=== PATIENT | male | born 1970 | race Caucasian/White ===

== ENCOUNTER 2017-03-09 14:37 | Emergency (ER) | payer MEDICAID ==
[2017-03-09] MEDS ORDERED: KETOROLAC TROMETHAMINE 30 MG/ML VIAL IM ONE (15:20)
[2017-03-09] MEDS ORDERED: KETOROLAC TROMETHAMINE 30 MG/ML VIAL ONE (15:25)
--- OUTSIDE RECORDS SUMMARY | 2017-03-09 15:26 | XMS REPORT | Continuity of Care Document ---
:1970 Author Organization [facility] ([facility]) Address [address] [place] [address] Phone [phone] Care Team Providers Name Role Phone Stefany Merchant Primary Care Provider [phone] Source Comments This disclosure is being made pursuant to the Care Everywhere program, applicable federal and state laws, and may not contain all informaitonavailable regarding this patient.[facility] ([facility]) Active Allergies and Adverse Reactions Allergen Noted Date Severity Reactions Comments Penicillins 03/23/2013 Unknown Current Medications Prescription Sig. Disp. Refills Start Date End Date Status fluoxetine 40 mg Take 40 mg by mouth Active capsule daily. Indications: Depression albuterol 90 Use 2 Puffs by 1 Inhaler 6 03/23/2013 Active mcg/Actuation inhalation every 6 inhaler hours as needed. Indications: BRONCHOSPASM PREVENTION omeprazole 40 mg Take 1 Cap by mouth 30 Cap 5 12/15/2013 Active extended release daily. Indications: capsule GASTROESOPHAGEAL REFLUX nabumetone 500 mg Take 1 Tab by mouth 2 60 Tab 0 03/26/2014 Active tablet times daily. Indications: OSTEOARTHRITIS traMADol 50 mg Take 1 Tab by mouth 3 90 Tab 3 03/26/2014 Active tablet times daily as needed. Indications: PAIN tiZANidine 2 mg Take 1 Tab by mouth 3 90 Tab 3 03/26/2014 Active tablet times daily as needed. Indications: MUSCLE SPASM Active Problems Problem Noted Date Sacroiliac dysfunction 03/01/2014 Myofascial pain 10/28/2013 GERD (gastroesophageal reflux disease) 03/23/2013 Suicide attempt by drug ingestion 03/06/2012 Overdose of antidepressant 03/06/2012 Depression 12/26/2010 Resolved Problems Problem Noted Date Resolved Date Chest pain, unspecified 07/22/2012 03/23/2013 Suicide attempt 12/26/2010 03/06/2012 Social History Tobacco Use Types Packs/Day Years Used Date Current Some Day Smoker Cigarettes 0.5 30 Smokeless Tobacco: Never Used Tobacco Cessation:Counseling Given: Yes Comments: Alcohol Use Drinks/Week oz/Week Comments No 2 Cans of beer Last Filed Vital Signs Vital Sign Reading Time Taken Blood Pressure 142/87 07/15/2016 2:56 PM CDT Pulse 83 07/15/2016 2:56 PM CDT Temperature 36.6 C (97.9 F) 07/15/2016 2:49 PM CDT 

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
[2017-03-09] MEDS ORDERED: LIDOCAINE 1 PATCH ADH..PATCH TP ONE (16:00)
[2017-03-09 16:40] VITALS: BP 150/75
== END 2017-03-09 16:40 | disposition home or self-care (01) ==
LOC: ER 14:37
DX: S39.012A Strain of muscle, fascia and tendon of lower back, initial encounter (principal); S70.02XA Contusion of left hip, initial encounter; S70.12XA Contusion of left thigh, initial encounter; X58.XXXA Exposure to other specified factors, initial encounter; Y93.89 Activity, other specified; Y92.9 Unspecified place or not applicable; Z72.0 Tobacco use; M19.90 Unspecified osteoarthritis, unspecified site; K21.9 Gastro-esophageal reflux disease without esophagitis; J44.9 Chronic obstructive pulmonary disease, unspecified; I10 Essential (primary) hypertension

== ENCOUNTER 2017-08-13 15:23 | Observation (INO) | payer MEDICAID ==
[2017-08-13] MEDS: NITROGLYCERIN 0.4 MG/TAB BTL SL ONE ×2 (15:40→15:51)
[2017-08-13] MEDS ORDERED: ASPIRIN 81 MG TAB.CHEW ONE (15:43)
[2017-08-13] MEDS ORDERED: ASPIRIN 81 MG TAB.CHEW PO ONE (15:45)
[2017-08-13] MEDS ORDERED: NITROGLYCERIN 0.4 MG/TAB BTL SL ONE ×2 (15:51→16:02)
[2017-08-13 16:11] LABS: Hematocrit 46.3 % (42.0-52.0); Hemoglobin 16.7 gm/dL (13.5-18.0); Mean Cell Volume 91.9 fl (78-100); Mean Corpuscular Hemoglobin 33.1 pg (27-31); Mean Corpuscular Hgb Conc 36.1 g/dl (32-36); Mean Platelet Volume 9.6 fl (6.0-9.5); Neutrophil # 4.1 K/mm3 (1.3-6.0); Neutrophil % 65.2 % (42-75.0); Platelet Count 243 K/mm3 (150-450); Red Blood Count 5.04 M/mm3 (4.7-6.0); Red Cell Distribution Width 11.7 % (11.5-14.0); White Blood Count 6.3 K/mm3 (4.0-10.5)
[2017-08-13 16:18] LABS: Prothrombin Time (Patient) 10.2 Seconds (9.0-11.0)
--- NOTE | 2017-08-13 16:21 | ERNOTE ---
Chest Pain/Cardiac HPI Date of Service: 08/13/17 Chief Complaint: Chest Pain Time Seen by Provider: 08/13/17 15:55 Source: patient Exam Limitations: no limitations Immunizations: IMMUNIZATION HX Immunizations Up to Date Yes History of Influenza Vaccine Yes Hx Pneumococcal Vaccination Yes Allergies/Adverse Reactions: Allergies codeine Allergy (Unknown, Verified 08/13/17 15:35) Other Restless legs/spasms diphenhydramine HCl [From Benadryl] Allergy (Unknown, Verified 08/13/17 15:35) Itching hydrocodone Allergy (Unknown, Verified 08/13/17 15:35) Itching oxycodone [Oxycodone] Allergy (Unknown, Verified 08/13/17 15:35) Itching Penicillins Allergy (Unknown, Verified 08/13/17 15:35) Other Home Medications: HOME MEDICATIONS FLUoxetine HCL [Prozac] 20 mg PO BID 12/26/13 [Last Taken Unknown] Omeprazole [Prilosec] 40 mg PO DAILY 12/26/13 [Last Taken Unknown] Aspirin [Aspirin Chewable] 81 mg PO DAILY #30 tab.chew 11/17/14 [Last Taken Unknown] Ibuprofen [Motrin] 600 mg PO QID PRN #90 11/17/14 [Last Taken Unknown] Metoprolol Succinate [Toprol Xl] 100 mg PO DAILY #30 tablet.sa 11/17/14 [Last Taken 04/18/15 07:00 100mg] Nitroglycerin [Nitrostat] 0.4 mg SL PRN PRN #1 btl 11/17/14 [Last Taken Unknown] Polyethylene Glycol 3350 [Miralax] 17 gm PO BID #1 btl 12/27/14 [Last Taken Unknown] amLODIPine BESYLATE [Norvasc] 5 mg PO DAILY 04/03/15 [Last Taken Unknown] Meloxicam 7.5 mg PO DAILY #10 tablet 03/09/17 [Last Taken Unknown] Narrative: Pt. comes in with c/o chest pain for 24 hours and L leg numbness, and L arm numbness, pt. does state that he does have some mild SOB with this as well. Pt. denies any NVD, fever, and was seen for this previously and was diagnosed with a "mini stroke" pt. also states that he has a herniated disc in his lumbar spine. Pt. denies any alleviating or aggravating factors, or prehsopital treatment. Timing: getting worse Severity/Quality: sharp Location: substernal Chest Pain Radiation: no radiation Activities at Onset: none Modifying Factors - Improves: Present: nothing Modifying Factors - Worsens: Present: nothing Aspirin Treatment Today: no aspirin today Associated Symptoms: Present: dizziness Prior Chest Pain/Cardiac Workup: Reports: prior chest pain Review of Systems - Review of Systems Constitutional: Present: no symptoms reported. Absent: recent illness, fever, chills, weakness, fatigue, malaise EYE: Present: no symptoms reported ENT: Present: no symptoms reported Respiratory: Present: no symptoms reported. Absent: shortness of breath, cough , wheezing Cardiology: Present: chest pain. Absent: palpitations, syncope, edema Gastrointestinal/Abdominal: Present: no symptoms reported. Absent: nausea, vomiting, diarrhea Genitourinary: Present: no symptoms reported Musculoskeletal: Present: back pain - lower, neck pain Neurological: Present: dizziness/light-headedness, numbness - LUE and LLE, tingling - LLE Endocrine: Present: excessive sweating, flushing Hematologic/Lymphatic: Present: no symptoms reported. Absent: easy bruising, easy bleeding Psych: Present: no symptoms reported. Absent: anxiety, depressed All Other Systems: All systems neg except as marked - Patient's Past Medical History Patient History - Medical: Arthritis, GERD Patient History - Cardiac/Respiratory: COPD, Hypertension Patient History - Cancer: No Hx of Cancer Patient History - Surgical Procedures: Other Patient History - Other: None - Social History Living Situations: home Abuse History: No History of abuse Psych History: Hx of Depression, Current tx/ever been on anti-depressants or anti-anxiety meds Smoking Status: Current every day smoker Alcohol Use: none Drug Use: none - Immunizations Immunizations Up to Date: Yes Hx Pneumococcal Vaccination: Yes History of Influenza Vaccine: Yes Physical Exam - Physical Exam General Appearance: Present: wd/wn, alert, no apparent distress Head Exam: Present: normal inspection, no evidence of injury Eye Exam: Normal inspection: bilateral, PERRL: bilateral, EOMI: bilateral Ears, Nose, Throat: Present: normal ENT inspection, normal pharynx Neck: Present: normal inspection, nontender. Absent: lymphadenopathy (R), lymphadenopathy (L) Respiratory: Present: no respiratory distress, normal breath sounds, no accessory muscle use, chest nontender, lungs clear Cardiovascular/Chest: Present: no murmur, normal peripheral pulses, tachycardia Gastrointestinal/Abdominal: Present: normal bowel sounds, nontender Back Exam: Present: vertebral tenderness - L3-S1 Extremity Exam: Present: non-tender, normal range of motion, no edema Neurological Exam: Present: alert, oriented, motor weakness - LLE 4/5 , other - decreased feeling to sharp not numb...anxious Skin Exam: Present: normal color, warm/dry. Absent: pallor, skin rash ED Progress - Date and Time Seen: Date and Time: 08/13/17 16:51 Reviewed previous lumbar xray and pt. does not have herniated disc but does have DDD of L56 and S1 and facet joint disease. Pt. pain resolved with nitro and other than back pain is symptom free at this time 08/13/17 17:[address] Ashli owen who agrees to admit for rule out for chest pain since pt. has a cardiac history and Nitro is helpful with chest pain - Results and Orders Patient's Lab Results:: I have reviewed the patient's lab results. - Vital Signs Patient's Vital Signs:: I have reviewed the patient's vital signs. Vital Signs: Vital Signs 08/13/17 08/13/17 08/13/17 15:37 15:47 16:04 Temperature 36.5 C Pulse Rate 81 96 91 Respiratory 21 H 26 H 24 H Rate Blood Pressure 148/95 139/82 140/89 O2 Sat by Pulse 97 96 96 Oximetry - EKG EKG: NSR EKG read: Reviewed by me EKG Comments: no acute changes - Progress/Reassessment Chief Complaint: Chest Pain Departure Clinical Impression: Numbness and tingling Chest pain Qualifiers: Chest pain type: unspecified Qualified Code(s): R07.9 - Chest pain, unspecified - Departure Disposition: [facility] Condition: Fair
[2017-08-13 16:25] LABS: ALT 27 U/L (19-67); AST 24 U/L (0-48); Albumin * 3.6 gm/dl (3.4-5.0); Alkaline Phosphatase * 94 U/L (50-170); Anion Gap 12.2 mmol/L (6.8-13.8); Bilirubin, Total 0.7 mg/dL (0.0-1.1); Blood Urea Nitrogen 11 mg/dL (6-23); Ca. Corrected For Albumin 8.8 mg/dL (8.4-10.2); Calcium * 8.8 mg/dL (7.9-10.9); Carbon Dioxide 24.8 mmol/L (24-32.6); Chloride 104 mmol/L (97-106); Glucose * 106 mg/dL (70-110); Sodium 137 mmol/L (132-142); Total Protein 7.3 gm/dL (6.2-8.2)
[2017-08-13 16:26] LABS: Troponin I Less than 0.017 ng/ml (0.00-0.10)
[2017-08-13 16:32] LABS: INR 1.02 INR (0.90-1.10); Partial Thrombolplastin Time 26.2 Seconds (24-32)
[2017-08-13] MEDS ORDERED: NITROGLYCERIN 0.4 MG/TAB BTL SL PRN (21:54)
[2017-08-13] MEDS ORDERED: IBUPROFEN 200 MG TABLET PO PRN (21:54)
--- NOTE | 2017-08-13 21:54 | HP ---
<Rita Nelson - Last Filed: 08/13/17 22:04> Chief Complaint - Chief Complaint Date of Service: 08/13/17 Time of Service: 20:32 Chief Complaint: " Chest Pain". Source of HPI- Pt; reliable, ERP notes, History of Present Illness: Mr. Hyatt is a 47-yr-old WM pt of [facility] with a PMH of: Arthritis , Chest Pain, COPD, Depression, GERD, HTN & TIA. Pt states that yesterday ( ) at about 2pm, he developed worsening chest pain on his LT chest. He ignored the pain and went to work as the pain has been present for the last 6 months. When he got to work, he felt lightheaded and a coworker drove him back home. He then used his inhaler and took Aspirin and he felt better. Then,today (08/13) at approximately 2.30pm, the chest pain got worse and he got diaphoretic. He therefore chose to come to the ED. He reports that the pain felt sharp, but it did not radiate anywhere else and he felt SOB. However, he admits that he always gets dyspneic with increased activity. He denies the associated symptoms n/v. He has CAD risk factors which involves: HTN, Current Smoking & Obesity. At the ED,he received Nitro SL & Aspirin and the pain subsided.The EKG & Troponin was normal. During physical exam, there is reproduction of pain on chest wall palpation on the left side. He will be admitted under observation for remote telemetry and serial Troponins and EKG. - Patient's Past Medical History Patient History - Medical: Arthritis, Depression, GERD Patient History - Cardiac/Respiratory: COPD, Hypertension, TIA Patient History - Cancer: No Hx of Cancer Patient History - Surgical Procedures: Other Patient History - Other: None - Family History Mother Family History - Medical: History Unknown Family History - Cardiac/Respiratory: History Unknown Family History - Cancer: No pertinent family hx Father Family History - Medical: No pertinent hx Family History - Cardiac/Respiratory: History Unknown Family History - Cancer: History Unknown - Social History Living Situations: home Abuse History: No History of abuse Psych History: Hx of Depression, Current tx/ever been on anti-depressants or anti-anxiety meds Smoking Status: Current every day smoker Have you smoked in the past 12 months: Yes Patient requests Smoking Cessation Consult: No Alcohol Use: none Drug Use: none - Immunizations Immunizations Up to Date: Yes Hx Pneumococcal Vaccination: Yes History of Influenza Vaccine: Yes Review Of Systems (GEN) - Review of Systems Generalized/Overall Review: Present: Chills, Diaphoresis. Absent: Weakness, Fever, Malaise EENTM: Absent: Eye Pain, Double Vision Respiratory: Present: Cough, Shortness of Breath Cardiac: Present: Chest Pain. Absent: Edema, Palpitations, Syncope Abdominal: Absent: Nausea, Vomiting, Hematemesis, Abdominal Pain, Constipation Genitourinary: Absent: Burning, Itching, Urgency Musculoskeletal: Absent: Joint Pain, Back Pain Neurological: Present: Numbness - Numbess and tingling on the Left Arm for the last 6 months., Tingling. Absent: Headache, Anxiety, Depressed Skin: Absent: Dryness, Lesions Endocrine: Present: Intolerance to Heat, Flushing. Absent: Intolerance to Cold , Increased Hunger, Increased Thirst Misc: All systems neg except as marked Immunizations: IMMUNIZATION HX Immunizations Up to Date Yes History of Influenza Vaccine Yes Hx Pneumococcal Vaccination Yes Allergies/Adverse Reactions: Allergies Allergy/AdvReac Type Severity Reaction Status Date / Time codeine Allergy Unknown Other Verified 08/13/17 15:35 diphenhydramine HCl Allergy Unknown Itching Verified 08/13/17 15:35 [From Benadryl] hydrocodone Allergy Unknown Itching Verified 08/13/17 15:35 oxycodone [Oxycodone] Allergy Unknown Itching Verified 08/13/17 15:35 Penicillins Allergy Unknown Other Verified 08/13/17 15:35 Home Medications: HOME MEDICATIONS FLUoxetine HCL [Prozac] 20 mg PO BID 12/26/13 [Last Taken Unknown] Omeprazole [Prilosec] 40 mg PO DAILY 12/26/13 [Last Taken Unknown] Aspirin [Aspirin Chewable] 81 mg PO DAILY #30 tab.chew 11/17/14 [Last Taken Unknown] Ibuprofen [Motrin] 600 mg PO QID PRN #90 11/17/14 [Last Taken Unknown] Metoprolol Succinate [Toprol Xl] 100 mg PO DAILY #30 tablet.sa 11/17/14 [Last Taken 04/18/15 07:00 100mg] Nitroglycerin [Nitrostat] 0.4 mg SL PRN PRN #1 btl 11/17/14 [Last Taken Unknown] amLODIPine BESYLATE [Norvasc] 5 mg PO DAILY 04/03/15 [Last Taken Unknown] Exam - Exam Vital Signs: Vital Signs - Last Taken Temp 36.6 C 08/13/17 19:50 Pulse 83 08/13/17 19:50 Resp 20 08/13/17 19:50 BP 126/81 08/13/17 19:50 Pulse Ox 97 08/13/17 19:50 Constitutional: Present: Alert, Oriented x3, Cooperative, No distress ENT Exam: Present: normal ENT inspection, hearing grossly normal. Absent: nasal drainage, pharyngeal erythema Eye Exam: bilateral eye: normal inspection, PERRL Neck: Present: non-tender, full range of motion, supple Back Exam: Present: normal inspection Breasts: Present: Exam deferred Respiratory: Present: lungs clear, No rales, No wheezing Cardiovascular/Chest: Present: normal peripheral pulses, regular rate, rhythm, no chest tenderness, no edema Abdomen: Present: Normal bowel sounds, soft, nontender /Rectal: Present: Exam deferred Extremity: Present: non-tender, normal inspection Skin Exam: Present: warm/dry, no cyanosis Lymphatic: Present: no adenopathy Neurologic: Present: alert, normal mood/affect, oriented x 3 Appearance: Present: appropriate appearance, appropriate insight Eye contact: Present: cooperative, good eye contact, normal speech Thoughts: Present: normal thought pattern, no apparent hallucination Diagnostic Studies: Laboratory Results WBC 6.3 K/mm3 (4.0-10.5) 08/13/17 16:00 RBC 5.04 M/mm3 (4.7-6.0) 08/13/17 16:00 Hgb 16.7 gm/dL (13.5-18.0) 08/13/17 16:00 Hct 46.3 % (42.0-52.0) 08/13/17 16:00 MCV 91.9 fl (78-100) 08/13/17 16:00 MCH 33.1 pg (27-31) H 08/13/17 16:00 MCHC 36.1 g/dl (32-36) H 08/13/17 16:00 RDW 11.7 % (11.5-14.0) 08/13/17 16:00 Plt Count 243 K/mm3 (150-450) 08/13/17 16:00 MPV 9.6 fl (6.0-9.5) H 08/13/17 16:00 Immature Gran % (Auto) 0.30 % (0.001-0.429) 08/13/17 16:00 Immature Gran # (Auto) 0.02 K/mm3 (0.000-0.0310) 08/13/17 16:00 Neutrophils % 65.2 % (42-75.0) 08/13/17 16:00 Lymphocytes % 23.0 % (20-51) 08/13/17 16:00 Monocytes % 8.8 % (0.0-9) 08/13/17 16:00 Eosinophils % 2.2 % (0.0-3.0) 08/13/17 16:00 Basophils % 0.5 % (0.0-1.0) 08/13/17 16:00 Nucleated RBC % 0.0 k/mm3 (0-1) 08/13/17 16:00 Neutrophils # 4.1 K/mm3 (1.3-6.0) 08/13/17 16:00 Lymphocytes # 1.4 k/mm3 (1.5-3.5) L 08/13/17 16:00 Monocytes # 0.6 k/mm3 (0.0-1.0) 08/13/17 16:00 Eosinophils # 0.1 k/mm3 (0.0-0.7) 08/13/17 16:00 Absolute Basophils 0.0 k/mm3 (0.0-0.1) 08/13/17 16:00 PT 10.2 Seconds (9.0-11.0) 08/13/17 16:00 INR (Anticoag Therapy) 1.02 INR (0.90-1.10) 08/13/17 16:00 PTT ([place]) 26.2 Seconds (24-32) 08/13/17 16:00 Sodium 137 mmol/L (132-142) 08/13/17 16:00 Plasma Sodium 137 mmol/L (130-142) 08/13/17 16:00 Potassium 4.0 mmol/L (3.4-4.6) 08/13/17 16:00 Chloride 104 mmol/L (97-106) 08/13/17 16:00 Carbon Dioxide 24.8 mmol/L (24-32.6) 08/13/17 16:00 Anion Gap 12.2 mmol/L (6.8-13.8) 08/13/17 16:00 BUN 11 mg/dL (6-23) 08/13/17 16:00 Creatinine 0.92 mg/dL (0.4-1.4) 08/13/17 16:00 Est GFR (Non-Af Amer) 93 mL/min (60-130) 08/13/17 16:00 BUN/Creatinine Ratio 12.0 (9.0-21.6) 08/13/17 16:00 Random Glucose 106 mg/dL (70-110) 08/13/17 16:00 Calcium 8.8 mg/dL (7.9-10.9) 08/13/17 16:00 Calcium Adj for Albumin 8.8 mg/dL (8.4-10.2) 08/13/17 16:00 Total Bilirubin 0.7 mg/dL (0.0-1.1) 08/13/17 16:00 AST 24 U/L (0-48) 08/13/17 16:00 ALT 27 U/L (19-67) 08/13/17 16:00 Alkaline Phosphatase 94 U/L (50-170) 08/13/17 16:00 Troponin I Less than 0.017 ng/ml (0.00-0.10) 08/13/17 16:00 Total Protein 7.3 gm/dL (6.2-8.2) 08/13/17 16:00 Albumin 3.6 gm/dl (3.4-5.0) 08/13/17 16:00 Assessment/Plan - Assessment/Plan (1) Chest pain, rule out acute myocardial infarction Assessment: Pt presented with chest pain and he describes the pain as ongoing for the last 6 months except with this presentation, the pain felt more sharp and he had the accompanying symptoms of diaphoresis and SOB. The first Troponin was negative and EKG showed NSR. 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 Will encourage use of APAP or NSADS & local heat or ice compression. Problem: Acute (2) HTN (hypertension) Problem: Chronic QualifierTitle: Hypertension type: essential hypertension Qualified Code( s): I10 - Essential (primary) hypertension (3) COPD (chronic obstructive pulmonary disease) Problem: Chronic (4) GERD (gastroesophageal reflux disease) Problem: Chronic (5) Depression Problem: Chronic (6) TIA (transient ischemic attack) Problem: Chronic <AshliTicogilmaFroilan - Last Filed: 08/14/17 09:48> History of Present Illness: I have examined the patient, reviewed the record and agree with the plan for monitoring, sequential ekg's and troponins. I supervised the care provided by our nurse practitioner hospitalist. Immunizations: IMMUNIZATION HX Immunizations Up to Date Yes History of Influenza Vaccine Yes Hx Pneumococcal Vaccination Yes Exam - Exam Vital Signs: Vital Signs - Last Taken Temp 36.3 C L 08/14/17 06:00 Pulse 65 08/14/17 08:04 Resp 18 08/14/17 06:00 BP 139/74 08/14/17 08:04 Pulse Ox 95 08/14/17 06:00 Diagnostic Studies: Laboratory Results WBC 6.3 K/mm3 (4.0-10.5) 08/13/17 16:00 RBC 5.04 M/mm3 (4.7-6.0) 08/13/17 16:00 Hgb 16.7 gm/dL (13.5-18.0) 08/13/17 16:00 Hct 46.3 % (42.0-52.0) 08/13/17 16:00 MCV 91.9 fl (78-100) 08/13/17 16:00 MCH 33.1 pg (27-31) H 08/13/17 16:00 MCHC 36.1 g/dl (32-36) H 08/13/17 16:00 RDW 11.7 % (11.5-14.0) 08/13/17 16:00 Plt Count 243 K/mm3 (150-450) 08/13/17 16:00 MPV 9.6 fl (6.0-9.5) H 08/13/17 16:00 Immature Gran % (Auto) 0.30 % (0.001-0.429) 08/13/17 16:00 Immature Gran # (Auto) 0.02 K/mm3 (0.000-0.0310) 08/13/17 16:00 Neutrophils % 65.2 % (42-75.0) 08/13/17 16:00 Lymphocytes % 23.0 % (20-51) 08/13/17 16:00 Monocytes % 8.8 % (0.0-9) 08/13/17 16:00 Eosinophils % 2.2 % (0.0-3.0) 08/13/17 16:00 Basophils % 0.5 % (0.0-1.0) 08/13/17 16:00 Nucleated RBC % 0.0 k/mm3 (0-1) 08/13/17 16:00 Neutrophils # 4.1 K/mm3 (1.3-6.0) 08/13/17 16:00 Lymphocytes # 1.4 k/mm3 (1.5-3.5) L 08/13/17 16:00 Monocytes # 0.6 k/mm3 (0.0-1.0) 08/13/17 16:00 Eosinophils # 0.1 k/mm3 (0.0-0.7) 08/13/17 16:00 Absolute Basophils 0.0 k/mm3 (0.0-0.1) 08/13/17 16:00 PT 10.2 Seconds (9.0-11.0) 08/13/17 16:00 INR (Anticoag Therapy) 1.02 INR (0.90-1.10) 08/13/17 16:00 PTT ([place]) 26.2 Seconds (24-32) 08/13/17 16:00 Sodium 137 mmol/L (132-142) 08/13/17 16:00 Plasma Sodium 137 mmol/L (130-142) 08/13/17 16:00 Potassium 4.0 mmol/L (3.4-4.6) 08/13/17 16:00 Chloride 104 mmol/L (97-106) 08/13/17 16:00 Carbon Dioxide 24.8 mmol/L (24-32.6) 08/13/17 16:00 Anion Gap 12.2 mmol/L (6.8-13.8) 08/13/17 16:00 BUN 11 mg/dL (6-23) 08/13/17 16:00 Creatinine 0.92 mg/dL (0.4-1.4) 08/13/17 16:00 Est GFR (Non-Af Amer) 93 mL/min (60-130) 08/13/17 16:00 BUN/Creatinine Ratio 12.0 (9.0-21.6) 08/13/17 16:00 Random Glucose 106 mg/dL (70-110) 08/13/17 16:00 Calcium 8.8 mg/dL (7.9-10.9) 08/13/17 16:00 Calcium Adj for Albumin 8.8 mg/dL (8.4-10.2) 08/13/17 16:00 Total Bilirubin 0.7 mg/dL (0.0-1.1) 08/13/17 16:00 AST 24 U/L (0-48) 08/13/17 16:00 ALT 27 U/L (19-67) 08/13/17 16:00 Alkaline Phosphatase 94 U/L (50-170) 08/13/17 16:00 Troponin I Less than 0.017 ng/ml (0.00-0.10) 08/13/17 21:35 Total Protein 7.3 gm/dL (6.2-8.2) 08/13/17 16:00 Albumin 3.6 gm/dl (3.4-5.0) 08/13/17 16:00
[2017-08-14] MEDS: FLUoxetine HCL 20 MG CAPSULE PO SCH ×2 (02:22→08:03)
--- NOTE | 2017-08-14 05:16 | DS ---
<Rita Nelson - Last Filed: 08/14/17 06:24> (1) Chest pain, rule out acute myocardial infarction Problem: Ruled-out (2) HTN (hypertension) Problem: Chronic QualifierTitle: Hypertension type: essential hypertension Qualified Code( s): I10 - Essential (primary) hypertension (3) COPD (chronic obstructive pulmonary disease) Problem: Chronic (4) GERD (gastroesophageal reflux disease) Problem: Chronic (5) Depression Problem: Chronic (6) TIA (transient ischemic attack) Problem: Chronic Description of Stay: Admission HPI. Mr. Hyatt is a 47-yr-old WM pt of [facility] with a PMH of: Arthritis , Chest Pain, COPD, Depression, GERD, HTN & TIA. Pt states that yesterday ( ) at about 2pm, he developed worsening chest pain on his LT chest. He ignored the pain and went to work as the pain has been present for the last 6 months. When he got to work, he felt lightheaded and a coworker drove him back home. He then used his inhaler and took Aspirin and he felt better. Then,today (08/13) at approximately 2.30pm, the chest pain got worse and he got diaphoretic. He therefore chose to come to the ED. He reports that the pain felt sharp, but it did not radiate anywhere else and he felt SOB. However, he admits that he always gets dyspneic with increased activity. He denies the associated symptoms n/v. He has CAD risk factors which involves: HTN, Current Smoking & Obesity. At the ED,he received Nitro SL & Aspirin and the pain subsided.The EKG & Troponin was normal. During physical exam, there is reproduction of pain on chest wall palpation on the left side. He will be admitted under observation for remote telemetry and serial Troponins and EKG. Hospital problem/s 1.) Chest pain Pt presented with chest pain and he described the pain as ongoing for the last 6 months except with this presentation, the pain felt more sharp and he had the accompanying symptoms of diaphoresis and SOB. He was admitted for an overnight stay and was placed on telemetry monitoring. He had serial troponin and EKG X 2 and both did not show any signs of ACS/CT. His symptoms did not appear have a cardiac cause. It is likely that he has costochondrtitis. 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 Will encourage use of APAP or NSADS & local heat or ice compression. He had no other acute conditions and is in a stable condition to be discharged home. Procedures Performed: none Discharge Disposition: Home self care Disposition: Home self-care Condition: Good Discharge Activity: Activity as tolerated Discharge Diet: Low fat/chol Problem Oriented Discharge Instructions to Patient/Family: Costochondritis, [id number], Chest Wall Pain, [id number] Additional Patient Instructions (free text): Follow-up with your Stefany GARCÍA next week. Complete Home Medications List: Complete Home Medication List: FLUoxetine HCL [Prozac] 20 mg PO BID 12/26/13 Omeprazole [Prilosec] 40 mg PO DAILY 12/26/13 Aspirin [Aspirin Chewable] 81 mg PO DAILY #30 tab.chew 11/17/14 Ibuprofen [Motrin] 600 mg PO QID PRN #90 11/17/14 Metoprolol Succinate [Toprol Xl] 100 mg PO DAILY #30 tablet.sa 11/17/14 Nitroglycerin [Nitrostat] 0.4 mg SL PRN PRN #1 btl 11/17/14 amLODIPine BESYLATE [Norvasc] 5 mg PO DAILY 04/03/15 <Froilan Fletcher - Last Filed: 08/14/17 09:52> Description of Stay: I have also examined the patient and reviewed the record at time of discharge. I agree with the assess and plan for discharge. The patient may return home and followup with his usual health care provider. I directed all of the care provided by our nurse practitioner hospitalist.
[2017-08-14] MEDS ORDERED: PANTOPRAZOLE SODIUM 40 MG TABLET.EC PO SCH (07:00)
[2017-08-14] MEDS ORDERED: OMEPRAZOLE 20 MG CAPSULE.SA PO SCH (07:00)
[2017-08-14 08:06] VITALS: BP 139/74
[2017-08-14] MEDS ORDERED: METOPROLOL SUCCINATE 100 MG TABLET.SA PO SCH (09:00)
[2017-08-14] MEDS ORDERED: ASPIRIN 81 MG TAB.CHEW PO SCH (09:00)
[2017-08-14] MEDS ORDERED: amLODIPine BESYLATE 5 MG TABLET PO SCH (09:00)
== END 2017-08-14 11:00 | disposition home or self-care (01) ==
LOC: ER 15:23 → INTOOBSV 17:15 → MS 17:15
PROVIDERS: ADMIT Allergy & Immunology; ATTEND Allergy & Immunology
DX: M94.0 Chondrocostal junction syndrome [Tietze] (principal); I10 Essential (primary) hypertension; K21.9 Gastro-esophageal reflux disease without esophagitis; J44.9 Chronic obstructive pulmonary disease, unspecified; F17.210 Nicotine dependence, cigarettes, uncomplicated; M51.36 Other intervertebral disc degeneration, lumbar region; G45.9 Transient cerebral ischemic attack, unspecified
CPT/HCPCS: 36415; 70450; 71020; 72050; 80053; 84484; 85025; 85610; 85730; 93005; 99285; G0378